=== PATIENT | male | born 1945 | race Caucasian/White ===

== ENCOUNTER 2019-11-12 08:09 | Day surgery (SDC) | payer OTHER, MEDICARE ==
[2019-11-10 15:28] VITALS: BMI 29.3
[2019-11-12] MEDS ORDERED: LIDOCAINE HCL/PF 2% SDV 5ML VIAL ONE (09:07)
[2019-11-12] MEDS ORDERED: PROPOFOL 20 ML ONE ×2 (09:08)
[2019-11-12 10:44] VITALS: BP 103/60; PULSE 61; TEMP 50
== END 2019-11-12 10:45 | disposition home or self-care (01) ==
LOC: FASU-ENDO 08:09
PROVIDERS: ATTEND Internal Medicine Gastroenterology
PROC: 0DJD8ZZ Inspection of Lower Intestinal Tract, Via Natural or Artificial Opening Endoscopic (ICD-10-PCS; principal; 2019-11-12 09:32)
DX: Z12.11 Encounter for screening for malignant neoplasm of colon (principal); Z80.0 Family history of malignant neoplasm of digestive organs